=== PATIENT | female | born 1945 | race Caucasian/White ===

== ENCOUNTER → 2017-02-25 | Outpatient (CLI) | payer OTHER ==
[~2017-02-25] MED LIST: ACCL20 PO; ASPI81TA28 PO; CETI10TA84 PO; CRDCD/180 PO; CRS/10 PO; MOME1AER5 INH; VNTHFA/IN INH
[2017-02-25 10:55] LABS: BASO % 0.7 %; BASO ABS # 0.05 K/uL (0-0.2); COMPLETE YES; EOS % 4.1 %; HEMATOCRIT 42.4 % (37-47); IG% 0.3 %; LYMPH % 37.3 %; LYMPH ABS # 2.79 K/uL (1.2-3.4); MEAN CELL VOLUME 87.4 fL (80-100); MEAN CORPUSCULAR HEMOGLOBIN 28.2 pg (25-34); MEAN CORPUSCULAR HGB CONC 32.3 g/dl (32-36); MEAN PLATELET VOLUME 9.4 fL (7.4-10.4); MONO % 9.5 %; NEUT % 48.1 %; PLATELET COUNT 285 K/uL (130-400); RED BLOOD COUNT 4.85 M/uL (4.2-5.4); WHITE BLOOD COUNT 7.47 K/uL (4.8-10.8)
[2017-02-25 11:13] LABS: ALT/SGPT 32 U/L (12-78); BLOOD UREA NITROGEN 13 mg/dl (7-18); BUN/CREATININE RATIO 16.3 (10-20); CALCIUM 9.5 mg/dl (8.5-10.1); CARBON DIOXIDE 26 mmol/L (21-32); CHLORIDE 108 mmol/L (98-107); CHOLESTEROL 171 mg/dl (0-200); CREATININE 0.82 mg/dl (0.60-1.20); GLUCOSE 90 mg/dl (70-99); POTASSIUM 4.1 mmol/L (3.5-5.1); SODIUM 142 mmol/L (136-145)
[2017-02-25 11:24] LABS: ALB/GLOB RATIO 1.1 (0.9-2); ALKALINE PHOSPHATASE 73 U/L (45-117); AST/SGOT 17 U/L (15-37); CHOLESTEROL/HDL RATIO 2.8; HDL CHOLESTEROL 62 mg/dl; LDL CHOLESTEROL CALCULATED 84 mg/dl; TRIGLYCERIDES 123 mg/dl (0-150); VERY LOW DENSITY LIPOPROT CALC 25 mg/dl
[2017-02-25 12:11] LABS: ESTIMATED AVERAGE GLUCOSE 126 mg/dl; HA1C FLAG Normal (Normal)
== END | disposition home or self-care (01) ==
LOC: C.LABBC 07:50
PROVIDERS: ATTEND Internal Medicine Pulmonary Disease
DX: J30.9 Allergic rhinitis, unspecified (principal); J45.909 Unspecified asthma, uncomplicated; M51.36 Other intervertebral disc degeneration, lumbar region; E11.9 Type 2 diabetes mellitus without complications

== ENCOUNTER → 2017-10-07 | Outpatient (CLI) | payer OTHER ==
[2017-10-07 14:04] LABS: HEMOGLOBIN A1C 5.8 % (4.5-5.6)
[2017-10-07 14:17] LABS: ALBUMIN 3.9 gm/dl (3.4-5.0); ALT/SGPT 29 U/L (12-78); AST/SGOT 17 U/L (15-37); BLOOD UREA NITROGEN 14 mg/dl (7-18); CALCIUM 9.4 mg/dl (8.5-10.1); CARBON DIOXIDE 24 mmol/L (21-32); CREATININE 0.79 mg/dl (0.60-1.20); GLUCOSE 94 mg/dl (70-99); POTASSIUM 4.2 mmol/L (3.5-5.1); SODIUM 138 mmol/L (136-145)
[2017-10-07 14:20] LABS: ALKALINE PHOSPHATASE 78 U/L (45-117); CHOLESTEROL 165 mg/dl (0-200); LDL CHOLESTEROL CALCULATED 80 mg/dl; TOTAL PROTEIN 7.7 gm/dl (6.4-8.2)
== END | disposition home or self-care (01) ==
LOC: C.LABBC 10:29
PROVIDERS: ATTEND Internal Medicine Pulmonary Disease
DX: J45.909 Unspecified asthma, uncomplicated (principal); E78.5 Hyperlipidemia, unspecified; E11.9 Type 2 diabetes mellitus without complications

== ENCOUNTER → 2018-04-04 | Outpatient (CLI) | payer OTHER ==
[~2018-04-04] MED LIST changes: -ACCL20 PO; +ZAFI1TAB11 PO
[2018-04-04 13:27] LABS: HEMOGLOBIN A1C 6.4 % (4.5-5.6)
== END | disposition home or self-care (01) ==
LOC: C.LABBC 09:55
PROVIDERS: ATTEND Internal Medicine Pulmonary Disease
DX: J30.9 Allergic rhinitis, unspecified (principal); J45.909 Unspecified asthma, uncomplicated; E78.5 Hyperlipidemia, unspecified; E11.9 Type 2 diabetes mellitus without complications; Z95.2 Presence of prosthetic heart valve

== ENCOUNTER 2022-10-18 05:23 | Observation (INO) ==
--- NOTE | 2022-09-08 13:34 | PAT Medication Instructions ---
Medication Instructions Date of Service September 08, 2022 Home Medications Medication Instructions Recorded albuterol sulfate 2.5 mg/3 mL 2.5 mg (3 mL) inhalation Q4H PRN 11/26/21 (0.083 %) solution for nebulization shortness of breath or wheezing #90 mL rosuvastatin 10 mg tablet 10 mg PO HS #90 tabs 11/26/21 albuterol sulfate 90 mcg/actuation 2 puff inhalation Q4H PRN Wheezing 05/27/22 aerosol inhaler (Proventil HFA) #18 grams aspirin 81 mg tablet,delayed release (Chandrakant Low Dose Aspirin) 81 mg PO PM bromelains 500 mg tablet 500 mg PO DAILY cetirizine 10 mg tablet (Zyrtec) 10 mg PO PM cholecalciferol (vitamin D3) 25 mcg (1,000 unit) capsule (Vitamin D3) 1,000 unit PO DAILY diltiazem HCl 240 mg capsule,extended release 24 hr (Cartia XT) 240 mg PO PM glucosamine sulfate 500 mg tablet (Glucosamine) 500 mg PO DAILY multivitamin 1 tab PO QAM diphenhydramine HCl 25 mg tablet 25 mg PO DAILY PRN albuterol sulfate 2.5 mg/3 mL (0.083 %) solution for nebulization 2.5 mg (3 mL) inhalation Q4H PRN rosuvastatin 10 mg tablet 10 mg PO HS albuterol sulfate 90 mcg/actuation aerosol inhaler (Proventil HFA) 2 puff inhalation Q4H PRN olmesartan 5 mg tablet 20 mg PO HS acetaminophen 500 mg capsule 500 mg PO Q6H PRN lutein 20 mg-zeaxanthin 1,000 mcg capsule 1 cap PO DAILY meloxicam 7.5 mg tablet 7.5 mg PO .COMPLEX PRN mometasone 220 mcg/actuation(60 doses) breath activated powder inhaler (Asmanex Twisthaler) 1 inh inhalation PM vitamin B complex 1 tab PO DAILY zafirlukast 20 mg tablet 20 mg PO QAM ASK your surgeon for instructions meloxicam 7.5 mg tablet 7.5 mg PO .COMPLEX PRN STOP taking 2 weeks before surgery (or as soon as possible if surgery is within 2 weeks) bromelains 500 mg tablet 500 mg PO DAILY glucosamine sulfate 500 mg tablet (Glucosamine) 500 mg PO DAILY lutein 20 mg-zeaxanthin 1,000 mcg capsule 1 cap PO DAILY vitamin B complex 1 tab PO DAILY DO NOT take the morning of surgery cholecalciferol (vitamin D3) 25 mcg (1,000 unit) capsule (Vitamin D3) 1,000 unit PO DAILY multivitamin 1 tab PO QAM diphenhydramine HCl 25 mg tablet 25 mg PO DAILY PRN Take morning of surgery With a small sip of water, OTHERWISE NOTHING TO EAT OR DRINK AFTER MIDNIGHT: albuterol sulfate 2.5 mg/3 mL (0.083 %) solution for nebulization 2.5 mg (3 mL) inhalation Q4H PRN(if needed) albuterol sulfate 90 mcg/actuation aerosol inhaler (Proventil HFA) 2 puff inhalation Q4H PRN(use if needed; please bring with you to hospital day of surgery if possible) acetaminophen 500 mg capsule 500 mg PO Q6H PRN(if needed) zafirlukast 20 mg tablet 20 mg PO QAM Take evening before surgery aspirin 81 mg tablet,delayed release (Chandrakant Low Dose Aspirin) 81 mg PO PM (unless directed otherwise by surgeon) cetirizine 10 mg tablet (Zyrtec) 10 mg PO PM diltiazem HCl 240 mg capsule,extended release 24 hr (Cartia XT) 240 mg PO PM albuterol sulfate 2.5 mg/3 mL (0.083 %) solution for nebulization 2.5 mg (3 mL) inhalation Q4H PRN(if needed) rosuvastatin 10 mg tablet 10 mg PO HS albuterol sulfate 90 mcg/actuation aerosol inhaler (Proventil HFA) 2 puff inhala tion Q4H PRN(if needed) olmesartan 5 mg tablet 20 mg PO HS acetaminophen 500 mg capsule 500 mg PO Q6H PRN(if needed) mometasone 220 mcg/actuation(60 doses) breath activated powder inhaler (Asmanex Twisthaler) 1 inh inhalation PM Other Notes If you have any questions please call us at [phone] or [phone] or [phone] or [phone]
--- NOTE | 2022-09-16 14:28 | Anesthesiology Consultation ---
Date of Service September 16, 2022 Assessment & Plan (1) Encounter for pre-operative examination: Chart Review Chart Review: Acceptable Risk for Surgery and Patient seen in Pre Admission Testing - Not a Same Day Joint candidate due to comorbidities and age Per PAT appt on 09/16/22, patient denies any recent travel or large group activities. Pt is vaccinated for Covid. Will leave to surgeon's discretion if preop Covid testing needed. Educated on importance of using Covid precautions one week prior to surgery Pt seen by cardio 08/03/22= patient seen for follow-up in regards to bioprosthetic aortic valve replacement and aortic root enlargement using noncoronary cusp technique, hypertension and preserved left ventricular systolic function by echo March 2022. Patient to undergo left hip replacement in September [address] Wood. From my standpoint, she can proceed with surgery. Risk of cardiac complications is in the range of 3-4% at most. LV function is normal and her bioprosthetic valve is functioning normally. Prior to 2015 aortic valve replacementshe did not have any coronary artery disease per preop cardiac catheterization. Would recommend stopping her IV fluids as soon as possible as she is taking p.o. postoperatively in order to avoid volume overload and diastolic heart failure. BP remains elevatedlikely exacerbated by degree of painolmesartan increased from 15 to 20 mg at night. Otherwise from my standpoint she is stable. Follow-up in 6 months. Teaching & Discussion Pre-Anesthesia Teaching/Discussion Notes: Instructed NPO after midnight before surgery,except medications with 15 cc of water. Medication instructions provided according to the PAT guidelines. History Surgery Operation Date: 10/18/22 09:20 Proposed Procedures p Left Anterior Total Hip Arthroplasty - Luciano Wood DO Height/Weight Height: 5 ft 3 in Weight: 63.3 kg Allergies Allergy/AdvReac Type Severity Reaction Status Date / Time tree nut Allergy Intermediate Hives Verified 08/30/22 14:39 doxycycline Allergy Dizziness Verified 08/30/22 14:38 monohyrate Allergy Unknown Unknown Uncoded 08/30/22 14:38 Medications Home Medications Medication Instructions Recorded Confirmed Last Taken aspirin 81 mg tablet,delayed 81 mg PO PM 05/04/18 08/30/22 05/04/18 release (Chandrakant Low Dose Aspirin) bromelains 500 mg tablet 500 mg PO DAILY 05/04/18 08/30/22 05/04/18 cetirizine 10 mg tablet (Zyrtec) 10 mg PO PM 05/04/18 08/30/22 05/04/18 cholecalciferol (vitamin D3) 25 1,000 unit PO DAILY 05/04/18 08/30/22 05/04/18 mcg (1,000 unit) capsule (Vitamin D3) diltiazem HCl 240 mg 240 mg PO PM 05/04/18 08/30/22 05/03/18 capsule,extended release 24 hr (Cartia XT) glucosamine sulfate 500 mg tablet 500 mg PO DAILY 05/04/18 08/30/22 05/04/18 (Glucosamine) multivitamin 1 tab PO QAM 05/04/18 08/30/22 05/04/18 diphenhydramine HCl 25 mg tablet 25 mg PO DAILY PRN Allergy 05/08/19 08/30/22 Unknown Symptoms #180 tabs albuterol sulfate 2.5 mg/3 mL 2.5 mg (3 mL) inhalation Q4H PRN 11/26/21 08/30/22 Unknown (0.083 %) solution for nebulization shortness of breath or wheezing #90 mL rosuvastatin 10 mg tablet 10 mg PO HS #90 tabs 11/26/21 08/30/22 Unknown albuterol sulfate 90 mcg/actuation 2 puff inhalation Q4H PRN Wheezing 05/27/22 08/30/22 Unknown aerosol inhaler (Proventil HFA) #18 grams olmesartan 5 mg tablet 20 mg PO HS 05/27/22 08/30/22 Unknown acetaminophen 500 mg capsule 500 mg PO Q6H PRN Pain 08/30/22 08/30/22 Unknown lutein 20 mg-zeaxanthin 1,000 mcg 1 cap PO DAILY 08/30/22 08/30/22 Unknown capsule meloxicam 7.5 mg tablet 7.5 mg PO .COMPLEX PRN Pain 08/30/22 08/30/22 Unknown mometasone 220 mcg/actuation(60 1 inh inhalation PM 08/30/22 08/30/22 Unknown doses) breath activated powder inhaler (Asmanex Twisthaler) vitamin B complex 1 tab PO DAILY 08/30/22 08/30/22 Unknown zafirlukast 20 mg tablet 20 mg PO QAM 08/30/22 08/30/22 Unknown Past Medical History Medical History Allergic rhinitis Aortic valve disease S/p AVR (2015)- bioprosthetic - due to severe Follows with Dr. Messer Asthma Breathing stable Hyperlipidemia Hypertension Lumbar degenerative disc disease SNHL (sensorineural hearing loss) b/l aids Exercise / Class Metabolic Activity II 4-5 Yardwork/Stairs/Walk up hill (one flight of stairs - no chest pain or SOB (uses cane for support)) Past Family History Family History Other No pertinent family history Past Surgical History Surgical History H/O aortic valve replacement [address] [place] Trifecta pericardial [place] [facility] [place] H/O colonoscopy (~2008) History of cardiac cath 2016 > no stents History of endometrial ablation History of hysterectomy History of tooth extraction S/P correction of deviated nasal septum Past Anesthesia History No Hx of Anesthesia Complications and No Family Hx of Anesthesia Complications History of PONV No Hx of Motion Sickness and History of PONV (one episode with AVR ) Social History Smoking Status: Never smoker Do You Dip or Chew Tobacco: No Hx Alcohol Use: No Hx Substance Use: No substance use type: does not use Review of Systems Chronic sinus issues- due allergies - stable - no acute issues Hx of blood transfusions- s/p surgery (2015) Occ snoring - no hx of sleep study (usually snoring due to congestion from allergies) Patient denies chest pain, shortness of breath, dyspnea on exertion, reflux, wheezing, palpitations. No hx of seizures, stroke, AL. No hx of blood clots Physical Exam Vital Signs VITALS BP 150/69 P 79 TEMP 97.9 SP02 96% RESP 16 Constitutional no acute distress ENMT Mouth: no TMJ clicking Thyromental Distance: < 3.5 Finger Breadths (3.0) Mallampati Class: II Neck + limited neck extension Respiratory normal respiratory effort; no respiratory distress Auscultation: lungs clear to auscultation bilaterally; no wheezes Cardiovascular Rate/Rhythm: regular rate and regular rhythm Heart Sounds: + murmur (II/ murmur ) Vessels: no carotid bruit Musculoskeletal Spine: no pain with cervical ROM Extremities: extremities normal to inspection Psychiatric Orientation: alert Lab Results Anesthesia Preop Results Results Anesthesia Widget: WBC 9.61 K/ul (4.8-10.8) 09/16/22 Hgb 11.9 g/dl (12.0-16.0) L 09/16/22 Hct 35.7 % (37.0-47.0) L 09/16/22 Plt 329 K/uL (130-400) 09/16/22 Na 133 mmol/L (136-145) L 09/16/22 K 4.6 mmol/L (3.5-5.1) 09/16/22 Cl 99 mmol/L (98-107) 09/16/22 CO2 26 mmol/L (21-32) 09/16/22 BUN 10 mg/dl (6-23) 09/16/22 Creat 0.58 mg/dl (0.6-1.2) L 09/16/22 Glucose Level 90 mg/dl (70-99(Fasting)) 09/16/22 PT 10.6 Seconds (9.0-12.0) 09/16/22 PTT 28.4 Seconds (21.0-31.0) 09/16/22 INR 1.0 (0.9-1.1) 09/16/22 Blood Type A Positive 09/16/22 Antibody Screen NEGATIVE 09/16/22 Testing Electrocardiogram Date: 09/16/22 Findings: + NSR @ (77bpm ) Possible left atrial enlargement When compared to EKG from Apr- PVCs are no longer present per cardio Chest X-Ray Date: 09/16/22 Findings: + NAD Echocardiogram Date: 04/07/22 EF: 70% LV Function: normal RWMA: + none Other Findings: + diastolic dysfunction (Grade 1) Asymmetrical basal septal hypertrophy of the elderly Well-seated 19 mm [place] trifecta pericardial aortic valve replacement with appropriate hemodynamics. Mild MR. Moderate TR. Compared to previous study from 08/28/2020, there is no significant change. COVID-19 Risk Screen Screening Information COVID-19 Screen Date: 09/16/22 Exposure 21 Days Family/Household +COVID Last 21 Days: No Exposure 10 Days Any COVID Exposure Last 10 Days: No Symptoms Last 10 Days Experienced COVID Sx Last 10 Days: No + COVID 0-90 Days COVID + in Last 0-90 Days: No Risk Plan COVID Risk Plan: No Risk Identified Patient Education COVID Preop Screening Education Complete: Yes
[2022-10-18] MEDS ORDERED: TRANEXAMIC ACID 1,000 MG **IV Pre-op IV SCH (06:00)
[2022-10-18] MEDS ORDERED: Ketorolac (*for OR use only*) 30 MG, dexAMETHasone 4 MG, KETAMINE HCL (**OR use only) 1... INFIL SCH (06:00)
[2022-10-18] MEDS ORDERED: dexAMETHasone 4 MG TAB PO SCH (06:00)
[2022-10-18] MEDS ORDERED: LR 60ML/HR IV SCH (06:00)
[2022-10-18] MEDS ORDERED: TRANEXAMIC ACID 1,000 MG **IV Intra-op IV SCH (06:00)
[2022-10-18] MEDS ORDERED: FAMOTIDINE 20 MG TAB PO SCH (06:00)
[2022-10-18] MEDS ORDERED: GABAPENTIN 300 MG CAP PO SCH (06:00)
[2022-10-18] MEDS ORDERED: ceFAZolin 2000MG 2,000 MG/15 ML SYR IV SCH (06:00)
[2022-10-18] MEDS ORDERED: ACETAMINOPHEN 500 MG TAB PO SCH (06:00)
[2022-10-18] MEDS ORDERED: BUPIVACAINE 0.5 % 5 MG/1 ML PF 10ML VIAL ONE (06:25)
[2022-10-18] MEDS ORDERED: ORTHO JOINT ANESTHETIC ONE (06:31)
--- NOTE | 2022-10-18 06:40 | History & Physical Bridge Note ---
Date of Service October 18, 2022 History & Physical Bridge Note I have examined the patient, reviewed the History & Physical and in the interval since the performance of the History & Physical I have noted the following changes of clinical significance: no changes noted
[2022-10-18] MEDS ORDERED: ATROPINE SULFATE 0.1 MG/ML 10ML SYR IV PRN (07:05)
[2022-10-18] MEDS ORDERED: ePHEDrine sulfate 50 MG/ML AMP IV PRN (07:05)
[2022-10-18] MEDS ORDERED: fentaNYL citrate 100 MCG/2 ML VIAL IV PRN (07:05)
[2022-10-18] MEDS ORDERED: HYDROmorphone INJ 2 MG/ML SYR/VIAL IV PRN (07:05)
[2022-10-18] MEDS ORDERED: MIDAZOLAM HCL 1 MG/ML 2ML VIAL ONE (07:15)
[2022-10-18] MEDS ORDERED: PROPOFOL IV EMULSION 10 MG/ML 20 ML VIAL IV ONE (07:15)
--- NOTE | 2022-10-18 08:30 | Operative Report ---
PG Post Operative Report Pre & Post Diagnosis Operation Date: 10/18/22 07:00 Pre-Op Diagnosis: Degenerative Joint Disease Left Hip Post-Op Diagnosis: Degenerative Joint Disease Left Hip I identified the patient and participated in the time-out.: Yes Procedure Operation Date: 10/18/22 07:00 Actual Procedures p Left Anterior Total Hip Arthroplasty, Uncemented(Left) - Luciano Wood DO Surgeon Luciano Wood DO Product Marketing Manager Luciano Ye PA-C Estimated Blood Loss 200 Findings Consistent with Post-Op Diagnosis Specimens Left femoral head Description of Procedure Implants used I used a ZimmerBiomet total hip arthroplasty system with a size 0 high offset Avenir Complete stem, a 50 mm G7 cup with a 25mm screw, an E1 polyethylene liner, a 36 mm ceramic head with a -3.5 neck. Melissa arrived at the hospital for the above procedure. She was seen in the preoperative holding area and the operative extremity was identified and signed. She was given a spinal anesthetic, a preoperative antibiotic, and TXA. She was then taken back to the operating room and laid on the table in the supine position. She was given basic sedation. The operative leg was secured to a Puristst leg positioner. The hip was then prepped and draped in sterile fashion. A timeout was done and the patient and the operative extremity was pr operly identified. An anterior approach was used. Dissection was taken down through the fascia and the tensor muscle belly was retracted laterally and the rectus was retracted medially. The circumflex vessels were identified and ligated. The capsule was then incised and tagged for later repair. The femoral neck was then cut and the femoral head was removed. The acetabulum was exposed. Time was spent doing a complete circumferential labral release. Sequential reaming of the acetabulum up to a size 49 reamer was done. Final reamings were done under fluoroscopy to ensure appropriate version. A Biomet 50 mm G7 cup was then impacted into place. A single 25 mm screw was placed. The E1 polyethylene liner was then snapped into place. Surrounding soft tissues were then injected with 100 cc of an orthopedic pain control cocktail. The proximal femur was then exposed. Sequential broaching up to a size 0 broach was done. Off that broach a size 36 head with a -3.5 neck was trialed. The hip was reduced and fluoroscopic images showed anatomic alignment of the implants in acceptable length. The broach was removed. The final size 0 high offset Avenir Complete stem was then impacted into place. A ceramic 36 mm head with a -3.5 neck was then impacted onto the stem and the hip was reduced. Final fluoroscopic images showed anatomic alignment of the hip. The capsule was then closed with #1 Vicryl suture. A dilute betadyne lavage was then done for 3 minutes. The joint was then irrigated with normal saline solution. The fascia was closed with #1 PDS suture. Skin was closed with 2-0 Vicryl, dagmar, and a Silverlon dressing. She was then transferred to a hospital bed and taken to the post anesthesia care unit in stable condition. She tolerated the procedure well. Luciano Ye PA-C, was present for the entire procedure. He was critical for patient positioning, prepping, draping, retraction exposure, wound closure and application of sterile dressing. I attest to the content of the Intraoperative Record and any orders documented therein. Any exceptions are noted below.
--- NOTE | 2022-10-18 09:04 | Fluoroscopy Report ---
FL hip LT 1V CLINICAL HISTORY: LT ANTERIOR HIP ARTHROPLASTY COMPARISON STUDY: Left hip radiographs September 29, 2022. FLUOROSCOPY TIME: 29 seconds. EXPOSURE DOSE: 2.5038 mGy FLUOROSCOPIC IMAGES: 1 FINDINGS: Fluoroscopy was provided during total left hip arthroplasty. There is an acetabular screw. Hardware is intact. No fracture is identified. IMPRESSION: Fluoroscopy provided during total left hip arthroplasty. ACT 112: Negative or not required by law. Electronically signed by: Ankur Santana M.D. 10/18/2022 9:02 AM
--- NOTE | 2022-10-18 09:34 | Anesthesiology Progress Note ---
Date of Service October 18, 2022 Anesthesia Post Procedure Vital Signs Vital Signs: Temp Pulse Pulse Resp BP BP Pulse Ox 10/18/22 09:30 61 13 123/54 L 98 10/18/22 09:20 36.2 C L 67 16 121/52 L 99 10/18/22 09:10 65 14 120/65 100 10/18/22 09:00 66 24 109/54 L 98 10/18/22 08:50 36.2 C L 74 16 104/53 L 98 10/18/22 05:56 10/18/22 05:56 36.9 C 94 H 20 187/85 H 96 O2 Del Method O2 Flow Rate 10/18/22 09:30 Room Air 10/18/22 09:20 Room Air 10/18/22 09:10 Oxymask 4 10/18/22 09:00 Oxymask 4 10/18/22 08:50 Oxymask 7 10/18/22 05:56 Room Air 10/18/22 05:56 Room Air Transfer of Care Handoff Completed per policy Notes Mental Status: alert / awake / arousable and participated in evaluation Nausea / Vomiting: adequately controlled Pain: adequately controlled Airway Patency, RR, SpO2: stable & adequate BP & HR: stable & adequate Hydration State: stable & adequate Neuraxial Anesthesia: was administered and sensory block is resolving Anesthetic Complications: no major complications apparent and Pt Satisfied with anesthetic care
[2022-10-18] MEDS ORDERED: HYDROmorphone INJ 0.5 MG/0.5 ML SYR IV PRN (09:48)
[2022-10-18] MEDS ORDERED: MAGNESIUM HYDROXIDE SUSP 30 ML UDC PO PRN (09:48)
[2022-10-18] MEDS ORDERED: bisacodyL 10 MG SUPP PR PRN (09:48)
[2022-10-18] MEDS ORDERED: ALBUTEROL 0.083% NEBU SOLN 3 ML VIAL INH PRN (09:48)
[2022-10-18] MEDS ORDERED: NALOXONE HCL 0.4 MG/1 ML VIAL/CARP IV PRN (09:48)
[2022-10-18] MEDS ORDERED: oxyCODONE HCL IR 5 MG TAB (IMMEDIATE RELEASE) PO PRN (09:48)
[2022-10-18] MEDS ORDERED: METOCLOPRAMIDE HCL INJ 5 MG/ML 2 ML VIAL IV PRN (09:48)
[2022-10-18] MEDS ORDERED: ALBUTEROL HFA 8 GM INHALER INH PRN (09:48)
[2022-10-18] MEDS ORDERED: ONDANSETRON INJ 2 MG/ML 2 ML VIAL IV PRN (09:48)
[2022-10-18] MEDS: SODIUM CHLORIDE 0.9% 1000ML 1,000 ML IV SCH ×2 (10:12→22:31)
[2022-10-18] MEDS: DOCUSATE SODIUM 100 MG CAP PO SCH ×2 (10:50→21:03)
[2022-10-18] MEDS: ASPIRIN 81 MG ECTAB PO SCH ×2 (10:50→21:02)
[2022-10-18] MEDS: MULTIVITAMIN TAB PO SCH (10:50)
[2022-10-18] MEDS: KETOROLAC TROMETHAMINE 15 MG/ML VIAL IV SCH ×3 (10:50→21:51)
--- NOTE | 2022-10-18 11:26 | XRay Report ---
XR hip 1V LT w pelvis CLINICAL HISTORY: Postoperative evaluation. COMPARISON: Left hip radiographs April 29, 2023. FINDINGS: Alignment of the total left hip arthroplasty is anatomic. There is no periprosthetic fract ure or unexpected radiopaque foreign body. There are skin dagmar. Acetabular screw is noted. Right h ip osteoarthritis is incidentally noted. IMPRESSION: Expected findings following total left hip arthroplasty. ACT 112: Negative or not required by law. Electronically signed by: Ankur Santana M.D. 10/18/2022 11:25 AM
[2022-10-18] MEDS: ACETAMINOPHEN 500 MG TAB PO SCH ×2 (14:40→21:02)
[2022-10-18] MEDS: ceFAZolin 2000MG 2,000 MG/15 ML SYR IV SCH ×2 (15:22→22:45)
[2022-10-18] MEDS ORDERED: FLUTICASONE FUROATE 100MCG 14 PUFFS/INHALER INH SCH (21:00)
[2022-10-18] MEDS ORDERED: dilTIAZem HCL 240 MG CAPCR PO SCH (21:00)
[2022-10-18] MEDS ORDERED: CETIRIZINE HCL 10 MG TABLET PO SCH (21:00)
[2022-10-18] MEDS ORDERED: LOSARTAN POTASSIUM 25 MG TAB PO SCH (21:00)
[2022-10-18] MEDS ORDERED: SENNA 8.6 MG TAB PO SCH (21:00)
[2022-10-18] MEDS ORDERED: ROSUVASTATIN CALCIUM 10 MG TAB PO SCH (21:00)
[2022-10-18] MEDS: ZAFIRLUKAST 20 MG PO SCH (21:04)
[2022-10-19] MEDS: KETOROLAC TROMETHAMINE 15 MG/ML VIAL IV SCH (05:22)
[2022-10-19] MEDS: ACETAMINOPHEN 500 MG TAB PO SCH (05:22)
[2022-10-19] MEDS: SODIUM CHLORIDE 0.9% 1000ML 1,000 ML IV SCH (06:04)
--- NOTE | 2022-10-19 06:50 | Orthopedic Progress Note ---
Date of Service October 19, 2022 Assessment & Plan (1) Status post left hip replacement: Overall she is doing very well. She is not having much pain in the left hip. She is on aspirin for DVT prophylaxis. She will be seen by physical therapy today for ambulation and range of motion exercises. She can be discharged home later today. She will follow-up with orthopedics in 2 weeks. Keisha Torres was seen and examined at bedside this morning. Overall she is doing fairly well. She is not having much pain in the left hip. She has been up and ambulating. She has no complaints.. Review of Systems All systems reviewed & are unremarkable except as noted in HPI & below. Physical Exam On physical examination of the left hip, the dressing is clean and dry. Her leg is out full extension. She has active dorsiflexion plantarflexion of her left ankle.. Results & Data Results & Data Laboratory Results . Diagnostic Findings Postoperative x-rays of the left hip show the prosthesis to be in anatomic alignment without any evidence of fracture, dislocation, or loosening. PG Care Time/CCT Total # of Minutes Spent Total Time Spent with Patient: Total time spent is greater than 50% in coordination of care (as documented) at patient's floor/unit and/or counseling patient: Coding Level of Care Code 45274 Post Operative Follow-Up Diagnoses Status post left hip replacement Z96.642
--- NOTE | 2022-10-19 06:51 | Discharge Summary ---
Date of Service October 19, 2022 Principal Diagnosis Same as "Discharge Diagnosis" noted below under Discharge Instructions. Discharge Exam On physical examination of the left hip, the dressing is clean and dry. Her leg is out full extension. She has active dorsiflexion plantarflexion of her left ankle.. Discharge Data Procedures Performed Operation Date: 10/18/22 07:00 Actual Procedures p Left Anterior Total Hip Arthroplasty, Uncemented(Left) - Luciano Wood DO Ordered Studies 10/18/22 07:00 FL hip LT 1V Routine Hospital Course (1) Status post left hip replacement: On October 18, 2022 Melissa arrived at [facility] and underwent a left hip replacement without complication. She had a spinal anesthetic. Postoperatively she was started on aspirin for DVT prophylaxis and transferred to the general orthopedic floors. Her hospital course was uneventful. On postop day #1, her vital signs were stable and her pain was well controlled. She was able to participate well with physical therapy doing ambulation and range of motion exercises. She was then discharged home. She will follow-up with orthopedics in 2 weeks. PG Care Time/CCT Total # of Minutes Spent Total Time Spent with Patient: Total time spent is greater than 50% in coordination of care (as documented) at patient's floor/unit and/or counseling patient: Discharge Plan Discharge Items Patient Disposition: Home - Home Health Services Reason For Visit: DJD Left Hip Discharge Diagnosis: Left hip replacement Activity: Per Instructions section Non-emergency contact: Surgeon Call non-emergency contact if: your wound has increased redness and your wound has increased drainage Follow-up/Referrals: Darnell Madsen MD [Primary Care Provider] - Diet: Regular Addtl Attending Provider Instructions: Activity and Therapy Recommendations: * If you are using [facility] then therapy will be provided at your home until they feel you have accomplished all of your goals. * If you are using [facility] then Physical Therapy will be provided until they feel you are ready to start Outpatient Physical Therapy. * If you are not using home therapy then Outpatient Physical Therapy should start about 3-5 days from your day of surgery. Therapy will last about 6-10 weeks * You were shown a series of exercises in the hospital. Do these exercises three times each day including the exercises you were shown in physical therapy. * Get up and walk several times each day.~ For the first four weeks, try not to stand or walk for more than one hour at a time. If you do stand or walk for more than one hour, you will not hurt anything, but your leg will likely swell.~~ * As you feel comfortable, you may change from the walker or crutches to a cane and~then to independent walking. Medications: * Narcotic You will likely be sent home from the hospital with a prescription for the narcotic pain medication that worked best throughout your stay. * Aspirin Most patients will be required to take Aspirin 81mg twice a day for 6 weeks after surgery. This is obtained [id number] and a prescription is not necessary. * Other medications may be prescribed for specific circumstances. If you have any questions, please call the office at . * Resume previous home medications unless otherwise instructed TEDs/Elastic Stockings: The white elastic stockings help limit swelling and prevent blood clots from forming in your legs. The more you wear them, the more they work. Wear them for six weeks. Dressing Care: Leave the Silverlon dressing in place for 7 days. After 7 days you may remove the dressing. If the incision is not draining then you may leave the dagmar open to air. If there is a little bit of drainage or if the dagmar are getting stuck on your clothing then cover the incision with a dry dressing. The dagmar will be removed at your 2 week follow-up appointment. Showering: You may shower with the Silverlon dressing in place. Do not let the shower spray hit the dressing directly. Pat the Silverlon dressing dry. If the dressing becomes wet underneath, then simply remove the dressing. Keep the incision dry until you are 7 days out from the day of surgery. After 7 days you may remove the Silverlon dressing and shower with the dagmar exposed. Let soapy water run over the dagmar and pat them dry. Do not scrub or soak the incision. Things To Watch For: * Drainage from the incision site that occurs more than one week after your surgery. * Increased redness at the incision site. * Fever above 102 degrees Fahrenheit. * Unusual chest pain or shortness of breath. * Call [facility] at with any of the above problems Follow-Up Visit: Follow-up with Dr. Wood's PA (Luciano Ye) 2-3 weeks after your day of surgery. He will remove your dagmar and answer any questions. If you have any additional questions or concerns, Dr Wood is usually in the office at the same time and will be available An appointment was probably scheduled when you signed-up for surgery in the office. If you have any questions call Office Instructions: More detailed instructions as well as Frequently Asked Questions were provided in a folder by our office when you signed-up for surgery. Please review these instructions when you get home. If you have any further questions or concerns, please feel free to call the office at [phone] Pending Studies at Discharge: No Stand-Alone Forms: My [facility] Medications and DC Order Prescriptions: Continued diphenhydramine HCl 25 mg tablet 25 mg PO DAILY PRN (Reason: Allergy Symptoms) Qty: 180 olmesartan 5 mg tablet 20 mg PO HS rosuvastatin 10 mg tablet 10 mg PO HS Qty: 90 3RF albuterol sulfate 2.5 mg /3 mL (0.083 %) solution for nebulization 2.5 mg inhalation Q4H PRN (Reason: shortness of breath or wheezing) Qty: 90 11RF albuterol sulfate [Proventil HFA] 90 mcg/actuation HFA aerosol inhaler 2 puff INHALATION Q4H PRN (Reason: Wheezing) Qty: 18 11RF multivitamin Tablet 1 tab PO QAM bromelains 500 mg Tablet 500 mg PO DAILY cetirizine [Zyrtec] 10 mg Tablet 10 mg PO PM diltiazem HCl [Cartia XT] 240 mg Capsule,Extended Release 24hr 240 mg PO PM glucosamine sulfate [Glucosamine] 500 mg Tablet 500 mg PO DAILY cholecalciferol (vitamin D3) [Vitamin D3] 1,000 unit Capsule 1,000 unit PO DAILY vitamin B complex [B Complete] Tablet 1 tab PO DAILY acetaminophen [Tylenol Extra Strength] 500 mg Capsule 500 mg PO Q6H PRN (Reason: Pain) lutein-zeaxanthin 20 mg- 1,000 mcg Capsule 1 cap PO DAILY meloxicam 7.5 mg tablet 7.5 mg PO .COMPLEX PRN (Reason: Pain) Rx Instructions: 7.5 mg PO twice daily with food.; zafirlukast 20 mg tablet 20 mg PO QAM Asmanex Twisthaler 220 mcg/ actuation (60) aerosol powdr breath activated 1 inh INH PM Changed aspirin [Chandrakant Low Dose Aspirin] 81 mg Tablet,Delayed Release (Dr/Ec) 81 mg PO BID 42 Days Qty: 0 0RF Admission Data Admit Date/Time: 10/18/22 08:53 Attending Provider: Luciano Wood Admit Provider: Luciano Wood Primary Care Provider: Darnell Madsen
[2022-10-19] MEDS: MULTIVITAMIN TAB PO SCH (08:41)
[2022-10-19] MEDS: ASPIRIN 81 MG ECTAB PO SCH (08:41)
[2022-10-19] MEDS: DOCUSATE SODIUM 100 MG CAP PO SCH (08:41)
[2022-10-19] MEDS: ZAFIRLUKAST 20 MG PO SCH (08:42)
== END 2022-10-19 12:03 | disposition home health service (06) ==
LOC: ASU 05:23 → 3E 05:23

== ENCOUNTER 2023-04-29 08:32 | Observation (INO) ==
--- NOTE | 2023-03-29 15:56 | PAT Medication Instructions ---
Medication Instructions Date of Service March 29, 2023 Home Medications Medication Instructions Recorded rosuvastatin 10 mg tablet 10 mg PO HS #90 tabs 11/26/21 albuterol sulfate 90 mcg/actuation 2 puff inhalation Q4H PRN Wheezing 05/27/22 aerosol inhaler (Proventil HFA) #18 grams tramadol 50 mg tablet 50 mg PO Q6H PRN pain #30 tabs 10/22/22 albuterol sulfate 2.5 mg/3 mL 2.5 mg (3 mL) inhalation Q4H PRN 03/02/23 (0.083 %) solution for nebulization shortness of breath or wheezing #90 mL bromelains 500 mg tablet 500 mg PO QAM cetirizine 10 mg tablet (Zyrtec) 10 mg PO QPM cholecalciferol (vitamin D3) 25 mcg (1,000 unit) capsule (Vitamin D3) 1,000 unit PO QAM diltiazem HCl 240 mg capsule,extended release 24 hr (Cartia XT) 240 mg PO HS multivitamin 1 tab PO QAM diphenhydramine HCl 25 mg tablet 25 mg PO DAILY PRN Allergy Symptoms rosuvastatin 10 mg tablet 10 mg PO HS albuterol sulfate 90 mcg/actuation aerosol inhaler (Proventil HFA) 2 puff inhalation Q4H PRN Wheezing acetaminophen 500 mg capsule 500 mg PO Q6H PRN Pain lutein 20 mg-zeaxanthin 1,000 mcg capsule 1 cap PO QAM mometasone 220 mcg/actuation(60 doses) breath activated powder inhaler (Asmanex Twisthaler) 1 inh inhalation QPM vitamin B complex 1 tab PO QAM zafirlukast 20 mg tablet 20 mg PO QAM tramadol 50 mg tablet 50 mg PO Q6H PRN pain albuterol sulfate 2.5 mg/3 mL (0.083 %) solution for nebulization 2.5 mg (3 mL) inhalation Q4H PRN shortness of breath or wheezing Glucosamine 2,000 mg PO QAM aspirin 81 mg tablet,delayed release (Chandrakant Low Dose Aspirin) 81 mg PO QPM docusate sodium 100 mg capsule (Stool Softener) 100 mg PO DAILY lactobacillus combination no.4 3 billion cell capsule (Probiotic) 3,000 mmu cells PO DAILY olmesartan 20 mg tablet 20 mg PO HS STOP taking 2 weeks before surgery lutein 20 mg-zeaxanthin 1,000 mcg capsule 1 cap PO QAM bromelains 500 mg tablet 500 mg PO QAM Glucosamine 2,000 mg PO QAM DO NOT take the morning of surgery cholecalciferol (vitamin D3) 25 mcg (1,000 unit) capsule (Vitamin D3) 1,000 unit PO QAM multivitamin 1 tab PO QAM diphenhydramine HCl 25 mg tablet 25 mg PO DAILY PRN Allergy Symptoms vitamin B complex 1 tab PO QAM docusate sodium 100 mg capsule (Stool Softener) 100 mg PO DAILY lactobacillus combination no.4 3 billion cell capsule (Probiotic) 3,000 mmu cells PO DAILY Take morning of surgery With a small sip of water, OTHERWISE NOTHING TO EAT OR DRINK AFTER MIDNIGHT: albuterol sulfate 90 mcg/actuation aerosol inhaler (Proventil HFA) 2 puff inhalation Q4H PRN Wheezing (use if needed; please bring with you to hospital day of surgery if possible) acetaminophen 500 mg capsule 500 mg PO Q6H PRN Pain (if needed) zafirlukast 20 mg tablet 20 mg PO QAM tramadol 50 mg tablet 50 mg PO Q6H PRN pain (if needed) albuterol sulfate 2.5 mg/3 mL (0.083 %) solution for nebulization 2.5 mg (3 mL) inhalation Q4H PRN shortness of breath or wheezing (if needed) Take evening before surgery cetirizine 10 mg tablet (Zyrtec) 10 mg PO QPM diltiazem HCl 240 mg capsule,extended release 24 hr (Cartia XT) 240 mg PO HS diphenhydramine HCl 25 mg tablet 25 mg PO DAILY PRN Allergy Symptoms (if needed) rosuvastatin 10 mg tablet 10 mg PO HS albuterol sulfate 90 mcg/actuation aerosol inhaler (Proventil HFA) 2 puff inhalation Q4H PRN Wheezing (if needed) acetaminophen 500 mg capsule 500 mg PO Q6H PRN Pain (if needed) mometasone 220 mcg/actuation(60 doses) breath activated powder inhaler (Asmanex Twisthaler) 1 inh inhalation QPM tramadol 50 mg tablet 50 mg PO Q6H PRN pain (if needed) albuterol sulfate 2.5 mg/3 mL (0.083 %) solution for nebulization 2.5 mg (3 mL) inhalation Q4H PRN shortness of breath or wheezing (if needed) aspirin 81 mg tablet,delayed release (Chandrakant Low Dose Aspirin) 81 mg PO QPM (unless surgeon directed otherwise) olmesartan 20 mg tablet 20 mg PO HS Other Notes If you have any questions please call us at [phone] or [phone] or [phone] or [phone]
--- NOTE | 2023-04-06 14:30 | Anesthesiology Consultation ---
Date of Service April 06, 2023 Assessment & Plan (1) Encounter for pre-operative examination: Chart Review Chart Review: Acceptable Risk for Surgery (pending ECHO 04/14/23) and Patient seen in Pre Admission Testing - Awaiting ECHO at [facility] 04/14/23 at 1600 - Due to age - patient is NOT an ideal OPJ candidate Per PAT appt on 04/06/23, no recent Covid exposures, Covid related symptoms, or recent Covid positive tests. Will leave to surgeon's discretion if preop Covid testing needed Patietn seen by cardio 02/02/23= Seen for follow up. Patient with history of bioprosthetic aortic valve replacement and HTN. Preserved LV systolic function. Patient had left hip done in September. Plans to have next done in the fall. Patient is stable. Feeling well since having hip replaced. Can ascend a flight of stairs without any shortness of breath or chest discomfort. Her risk does not change as far as cardiovascular risk proceeding with next hip surgery in Apr, 3 to 4% risk of cardiac complication. She will have an echocardiogram done in March prior to surgery which is a year from previous. BP borderline today- mointors at home- usually 130s systolically. follow up in six months Left Anterior YUKO 10/18/22= done under [facility] at L3-4 with two attempts Teaching & Discussion Pre-Anesthesia Teaching/Discussion Notes: Instructed NPO after midnight before surgery,except medications with 15 cc of water. Medication instructions provided according to the PAT guidelines. History Surgery Operation Date: 04/29/23 07:00 Proposed Procedures p Right Anterior Total Hip Arthroplasty - Luciano Wood DO Height/Weight Height: 5 ft 3 in Weight: 60.3 kg Allergies Allergy/AdvReac Type Severity Reaction Status Date / Time tree nut Allergy Intermediate Hives Verified 03/29/23 13:59 doxycycline Allergy Dizziness Verified 03/29/23 13:59 monohyrate Allergy Unknown Unknown Uncoded 03/29/23 13:59 Medications Home Medications Medication Instructions Recorded Confirmed Last Taken bromelains 500 mg tablet 500 mg PO QAM 05/04/18 03/29/23 10/04/22 cetirizine 10 mg tablet (Zyrtec) 10 mg PO QPM 05/04/18 03/29/23 10/17/22 18:00 cholecalciferol (vitamin D3) 25 1,000 unit PO QAM 05/04/18 03/29/23 10/04/22 mcg (1,000 unit) capsule (Vitamin D3) diltiazem HCl 240 mg 240 mg PO HS 05/04/18 03/29/23 10/17/22 21:00 capsule,extended release 24 hr (Cartia XT) multivitamin 1 tab PO QAM 05/04/18 03/29/23 10/04/22 diphenhydramine HCl 25 mg tablet 25 mg PO DAILY PRN Allergy 05/08/19 03/29/23 Unknown Symptoms #180 tabs rosuvastatin 10 mg tablet 10 mg PO HS #90 tabs 11/26/21 03/29/23 10/17/22 18:00 albuterol sulfate 90 mcg/actuation 2 puff inhalation Q4H PRN Wheezing 05/27/22 03/29/23 10/18/22 03:30 aerosol inhaler (Proventil HFA) #18 grams acetaminophen 500 mg capsule 500 mg PO Q6H PRN Pain 08/30/22 03/29/23 10/17/22 21:30 lutein 20 mg-zeaxanthin 1,000 mcg 1 cap PO QAM 08/30/22 03/29/23 10/04/22 capsule mometasone 220 mcg/actuation(60 1 inh inhalation QPM 08/30/22 03/29/23 10/17/22 18:00 doses) breath activated powder inhaler (Asmanex Twisthaler) vitamin B complex 1 tab PO QAM 08/30/22 03/29/23 10/04/22 zafirlukast 20 mg tablet 20 mg PO QAM 08/30/22 03/29/23 10/18/22 03:30 tramadol 50 mg tablet 50 mg PO Q6H PRN pain #30 tabs 10/22/22 03/29/23 Unknown albuterol sulfate 2.5 mg/3 mL 2.5 mg (3 mL) inhalation Q4H PRN 03/02/23 03/29/23 Unknown (0.083 %) solution for nebulization shortness of breath or wheezing #90 mL Glucosamine 2,000 mg PO QAM 03/29/23 03/29/23 Unknown aspirin 81 mg tablet,delayed 81 mg PO QPM 03/29/23 03/29/23 Unknown release (Chandrakant Low Dose Aspirin) docusate sodium 100 mg capsule 100 mg PO DAILY 03/29/23 03/29/23 Unknown (Stool Softener) lactobacillus combination no.4 3 3,000 mmu cells PO DAILY 03/29/23 03/29/23 Unknown billion cell capsule (Probiotic) olmesartan 20 mg tablet 20 mg PO HS 03/29/23 03/29/23 Unknown Past Medical History Medical History Allergic rhinitis Aortic valve disease S/p AVR (2016)- bioprosthetic - due to severe Follows with Dr. Messer Asthma Breathing stable Hyperlipidemia Hypertension Lumbar degenerative disc disease SNHL (sensorineural hearing loss) b/l aids Exercise / Class Metabolic Activity II 4-5 Yardwork/Stairs/Walk up hill (one flight of stairs - no chest pain or SOB ) Past Family History Family History Other No pertinent family history Past Surgical History Surgical History H/O aortic valve replacement [address] [place] [facility] Trifecta pericardial valve- [facility] [place] 2016 H/O colonoscopy (~2008) History of cardiac cath 2016 > no stents > [facility] [place] History of endometrial ablation History of hysterectomy History of tooth extraction History of total left hip arthroplasty anterior S/P correction of deviated nasal septum Past Anesthesia History No Hx of Anesthesia Complications (mild lightheadedness post op ) and No Family Hx of Anesthesia Complications (with exception to sister- no specifics- no severe reactions ) History of PONV No Hx of PONV and No Hx of Motion Sickness Social History Smoking Status: Never smoker Do You Dip or Chew Tobacco: No Hx Alcohol Use: Yes Alcohol type: wine alcohol intake frequency: other Alcohol Intake Frequency Comment: only once in awhile she may have 1 sip-very rarely Hx Substance Use: No substance use type: does not use Review of Systems - Hx of blood transfusion 2016- s/p AVR Patient denies chest pain, shortness of breath, dyspnea on exertion, reflux, cough, wheezing, palpitations. No hx of seizures, stroke, [place], apnea/snoring. No hx of blood clots Physical Exam Vital Signs VITALS BP 140/67 P 72 TEMP 97.5 SP02 96% RESP 16 Constitutional no acute distress ENMT Mouth: no TMJ clicking Thyromental Distance: > or= 3.5 Finger Breadths (3.5) Mallampati Class: III Crowns to side teeth Neck + limited neck extension (mild ) Respiratory normal respiratory effort; no respiratory distress Auscultation: lungs clear to auscultation bilaterally; no wheezes Cardiovascular Rate/Rhythm: regular rate and regular rhythm Heart Sounds: + murmur (III/ murmur ) Vessels: no carotid bruit Musculoskeletal Spine: no pain with cervical ROM Extremities: extremities normal to inspection Psychiatric Orientation: alert Lab Results Anesthesia Preop Results Results Anesthesia Widget: WBC 6.97 K/ul (4.8-10.8) 04/06/23 Hgb 11.4 g/dl (12.0-16.0) L 04/06/23 Hct 34.2 % (37.0-47.0) L 04/06/23 Plt 299 K/uL (130-400) 04/06/23 Na 133 mmol/L (136-145) L 04/06/23 K 4.1 mmol/L (3.5-5.1) 04/06/23 Cl 101 mmol/L (98-107) 04/06/23 CO2 24 mmol/L (21-32) 04/06/23 BUN 11 mg/dl (6-23) 04/06/23 Creat 0.55 mg/dl (0.6-1.2) L 04/06/23 Glucose Level 84 mg/dl (70-99(Fasting)) 04/06/23 PT 10.7 Seconds (9.0-12.0) 04/06/23 PTT 27.6 Seconds (21.0-31.0) 04/06/23 INR 1.0 (0.9-1.1) 04/06/23 Blood Type A Positive 04/06/23 Antibody Screen NEGATIVE 04/06/23 Testing Laboratory Results Anemia stable since 08/2022 Hyponatremia chronic and stable Electrocardiogram Date: 09/16/22 Findings: + NSR @ (77bpm ) Possible left atrial enlargement When compared to EKG from Apr- PVCs are no longer present per cardio Chest X-Ray Date: 09/16/22 Findings: + NAD Echocardiogram Date: 04/07/22 EF: 70% LV Function: normal RWMA: + none Other Findings: + diastolic dysfunction (Grade 1) Asymmetrical basal septal hypertrophy of the elderly Well-seated 19 mm [place] trifecta pericardial aortic valve replacement with appropriate hemodynamics. Mild MR. Moderate TR. Compared to previous study from 08/28/2020, there is no significant change.
[~2023-04-29 08:32] MED LIST changes: +ACETAMINOPHEN 500 MG TAB PO SCH; -ASPI81TA28 PO; +BUPIVACAINE 0.5 % 5 MG/1 ML PF 10ML VIAL ONE; -CETI10TA84 PO; -CRDCD/180 PO; -CRS/10 PO; +FAMOTIDINE 20 MG TAB PO SCH; +GABAPENTIN 300 MG CAP PO SCH; +LR 500ML BOLUS, THEN 15ML/HR IV SCH; +LR 60ML/HR IV SCH; -MOME1AER5 INH; +ORTHO JOINT MIX INFIL SCH; +TRANEXAMIC ACID 1,000 MG **IV Intra-op IV SCH; +TRANEXAMIC ACID 1,000 MG **IV Pre-op IV SCH; -VNTHFA/IN INH; -ZAFI1TAB11 PO; +ceFAZolin 2000MG 2,000 MG/15 ML SYR IV SCH; +dexAMETHasone 4 MG TAB PO SCH
[2023-04-29] MEDS ORDERED: MIDAZOLAM HCL 1 MG/ML 2ML VIAL ONE (09:22)
[2023-04-29] MEDS ORDERED: fentaNYL citrate PF 100 MCG/2 ML VIAL ONE (09:22)
[2023-04-29] MEDS ORDERED: LIDOCAINE 2% 2 ML VIAL/AMP(20MG/ML) INFIL ONE (09:22)
[2023-04-29] MEDS ORDERED: PROPOFOL IV EMULSION 10 MG/ML 20 ML VIAL IV ONE ×2 (09:22→10:40)
--- NOTE | 2023-04-29 09:27 | History & Physical Bridge Note ---
Date of Service April 29, 2023 History & Physical Bridge Note I have examined the patient, reviewed the History & Physical and in the interval since the performance of the History & Physical I have noted the following changes of clinical significance: no changes noted
[2023-04-29] MEDS ORDERED: ORTHO JOINT ANESTHETIC ONE (09:54)
[2023-04-29] MEDS ORDERED: ONDANSETRON INJ 2 MG/ML 2 ML VIAL IV PRN ×2 (10:03→14:33)
[2023-04-29] MEDS ORDERED: fentaNYL citrate PF 100 MCG/2 ML VIAL IV PRN (10:03)
[2023-04-29] MEDS ORDERED: ATROPINE SULFATE 0.1 MG/ML 10ML SYR IV PRN (10:03)
[2023-04-29] MEDS ORDERED: ePHEDrine sulfate 50 MG/ML AMP IV PRN (10:03)
--- NOTE | 2023-04-29 11:37 | Operative Report ---
PG Post Operative Report Pre & Post Diagnosis Operation Date: 04/29/23 10:00 Pre-Op Diagnosis: Osteoarthritis of Right Hip Post-Op Diagnosis: Osteoarthritis of Right Hip I identified the patient and participated in the time-out.: Yes Procedure Operation Date: 04/29/23 10:00 Actual Procedures p Right Anterior Total Hip Arthroplasty(Right) - Luciano Wood DO Surgeon Luciano Wood DO Head Grinder Luciano Ye PA-C Estimated Blood Loss 150 Findings Consistent with Post-Op Diagnosis Specimens Right femoral head Description of Procedure Implants used I used a ZimmerBiomet total hip arthroplasty system with a size 0 high offset Avenir Complete stem, a 48 mm G7 cup with a 25mm screw, an E1 polyethylene liner, a 32 mm ceramic head with a -3.5 neck. Melissa arrived at the hospital for the above procedure. She was seen in the preoperative holding area and the operative extremity was identified and signed. She was given a spinal anesthetic, a preoperative antibiotic, and TXA. She was then taken back to the operating room and laid on the table in the supine position. She was given basic sedation. The operative leg was secured to a Puristst leg positioner. The hip was then prepped and draped in sterile fashion. A timeout was done and the patient and the operative extremity was properly identified. An anterior approach was used. Dissection was taken down through the fascia and the tensor muscle belly was retracted laterally and the rectus was retracted medially. The circumflex vessels were identified and ligated. The capsule was then incised and tagged for later repair. The femoral neck was then cut and the femoral head was removed. The acetabulum was exposed. Time was spent doing a complete circumferential labral release. Sequential reaming of the acetabulum up to a size 47 reamer was done. Final reamings were done under fluoroscopy to ensure appropriate version. A Biomet 48 mm G7 cup was then impacted into place. A single 25 mm screw was placed. The E1 polyethylene liner was then snapped into place. Surrounding soft tissues were then injected with 100 cc of an orthopedic pain control cocktail. The proximal femur was then exposed. Sequential broaching up to a size 0 broach was done. Off that broach a size 32 head with a -3.5 neck was trialed. The hip was reduced and fluoroscopic images showed anatomic alignment of the implants in acceptable length. The broach was removed. The final size 0 high offset Avenir Complete stem was then impacted into place. A ceramic 32 mm head with a -3.5 neck was then impacted onto the stem and the hip was reduced. Final fluoroscopic images showed anatomic alignment of the hip. The capsule was then closed with #1 Vicryl suture. A dilute betadyne lavage was then done for 3 minutes. The joint was then irrigated with normal saline solution. The fascia was closed with #1 PDS suture. Skin was closed with 2-0 Vicryl, dagmar, and a Silverlon dressing. She was then transferred to a hospital bed and taken to the post anesthesia care unit in stable condition. She tolerated the procedure well. Luciano Ye PA-C, was present for the entire procedure. He was critical for patient positioning, prepping, draping, retraction exposure, wound closure and application of sterile dressing. I attest to the content of the Intraoperative Record and any orders documented therein. Any exceptions are noted below.
[2023-04-29] MEDS ORDERED: PHENYLEPHRINE 100MCG/ML 5ML SYR ONE (12:17)
--- NOTE | 2023-04-29 12:32 | Fluoroscopy Report ---
FL hip RT 1V CLINICAL HISTORY: RT ANTERIOR HIP. Right hip arthroplasty COMPARISON STUDY: 10/18/2022 FLUOROSCOPY TIME: 15.6 seconds FLUOROSCOPY IMAGES: 1 EXPOSURE DOSE: 1.367 mGy FINDINGS: Right hip arthroplasty demonstrates satisfactory alignment. No acute fracture or dislocatio n. Expected postoperative soft tissue swelling with deep tissue air. IMPRESSION: Fluoroscopic assistance as above. ACT 112: Negative or not required by law. Electronically signed by: Cristi De Los Santos M.D. 04/29/2023 12:30 PM
--- NOTE | 2023-04-29 13:01 | XRay Report ---
AP PELVIS, CROSSTABLE LATERAL RIGHT HIP History: Right total hip arthroplasty. Degenerative arthritis. Postop. FINDINGS: The patient is status post a right total hip arthroplasty. The hardware is intact. No fract ure or dislocation. Skin dagmar are in place. Evidence for prior left total hip arthroplasty. IMPRESSION: Right total hip arthroplasty. No evidence for hardware complication ACT 112: Negative or not required by law. Electronically signed by: Nikolas Morris M.D. 04/29/2023 1:00 PM
--- NOTE | 2023-04-29 13:21 | Anesthesiology Progress Note ---
Date of Service April 29, 2023 Anesthesia Post Procedure Vital Signs Vital Signs: Temp Pulse Pulse Resp BP Pulse Ox O2 Del Method 04/29/23 13:00 59 L 12 118/59 L 99 Room Air 04/29/23 12:50 58 L 14 121/60 97 Room Air 04/29/23 12:40 57 L 12 125/58 L 96 Room Air 04/29/23 12:30 60 14 114/57 L 94 Room Air 04/29/23 12:20 59 L 15 117/61 97 Room Air 04/29/23 12:10 76 14 115/47 L 95 Room Air 04/29/23 12:00 61 17 108/54 L 95 Room Air 04/29/23 11:54 36 C L 68 16 100/51 L 97 Room Air 04/29/23 09:15 36.6 C 77 20 181/80 H 98 Room Air Pain Intensity Right Hip: Pain Intensity: 5 Transfer of Care Handoff Completed per policy Notes Mental Status: alert / awake / arousable Patient Amnestic to Procedure: Yes Nausea / Vomiting: adequately controlled Pain: adequately controlled Airway Patency, RR, SpO2: stable & adequate BP & HR: stable & adequate Hydration State: stable & adequate Neuraxial Anesthesia: was administered and sensory block is resolving Anesthetic Complications: no major complications apparent and Pt Satisfied with anesthetic care
[2023-04-29] MEDS ORDERED: ALBUTEROL 0.083% NEBU SOLN 3 ML VIAL INH PRN (14:33)
[2023-04-29] MEDS ORDERED: diphenhydrAMINE Capsule 25 MG CAP PO PRN (14:33)
[2023-04-29] MEDS ORDERED: NALOXONE HCL 0.4 MG/1 ML VIAL/CARP IV PRN (14:33)
[2023-04-29] MEDS ORDERED: oxyCODONE HCL IR 5 MG TAB (IMMEDIATE RELEASE) PO PRN (14:33)
[2023-04-29] MEDS ORDERED: ALBUTEROL HFA 8 GM INHALER INH PRN (14:33)
[2023-04-29] MEDS ORDERED: PHARMACY GLYCEMIC MGMT CONSULT PRN (14:33)
[2023-04-29] MEDS ORDERED: METOCLOPRAMIDE HCL INJ 5 MG/ML 2 ML VIAL IV PRN (14:33)
[2023-04-29] MEDS ORDERED: MAGNESIUM HYDROXIDE SUSP 30 ML UDC PO PRN (14:33)
[2023-04-29] MEDS ORDERED: bisacodyL 10 MG SUPP PR PRN (14:33)
[2023-04-29] MEDS ORDERED: GLUCOSE 10 TAB/TUBE PO PRN (15:00)
[2023-04-29] MEDS ORDERED: GLUCOSE 40% GEL 15 GM TUBE PO PRN (15:00)
[2023-04-29] MEDS ORDERED: CARBOHYDRATES FOR HYPOGLYCEMIA PO PRN (15:00)
[2023-04-29] MEDS ORDERED: GLUCAGON FOR INJ 1 MG VIAL IM PRN (15:00)
[2023-04-29] MEDS ORDERED: DEXTROSE 50% 50 ML SYRINGE IV PRN (15:00)
[2023-04-29] MEDS: SODIUM CHLORIDE 0.9% 1,000 ML IV SCH (16:21)
[2023-04-29] MEDS: KETOROLAC TROMETHAMINE 15 MG/ML VIAL IV SCH ×2 (16:22→21:00)
[2023-04-29] MEDS: ACETAMINOPHEN 500 MG TAB PO SCH ×2 (16:22→22:11)
[2023-04-29] MEDS: INSULIN ASPART PER UNIT CHARGE SC SCH ×2 (17:34→21:50)
[2023-04-29] MEDS: ceFAZolin 2000MG 2,000 MG/15 ML SYR IV SCH (17:51)
[2023-04-29] MEDS: ASPIRIN 81 MG ECTAB PO SCH (19:56)
[2023-04-29] MEDS: DOCUSATE SODIUM 100 MG CAP PO SCH (19:56)
[2023-04-29] MEDS: HYDROmorphone INJ 0.5 MG/0.5 ML SYR IV PRN (19:56)
[2023-04-29] MEDS ORDERED: SENNA 8.6 MG TAB PO SCH (21:00)
[2023-04-29] MEDS ORDERED: ROSUVASTATIN CALCIUM 10 MG TAB PO SCH (21:00)
[2023-04-29] MEDS ORDERED: LOSARTAN POTASSIUM 50 MG TAB PO SCH (21:00)
[2023-04-29] MEDS ORDERED: dilTIAZem HCL 240 MG CAPCR PO SCH (21:00)
[2023-04-29] MEDS ORDERED: FLUTICASONE FUROATE 200MCG 14 PUFFS/INHALER INH SCH (21:00)
[2023-04-30] MEDS: SODIUM CHLORIDE 0.9% 1,000 ML IV SCH (01:03)
[2023-04-30] MEDS: ceFAZolin 2000MG 2,000 MG/15 ML SYR IV SCH (02:03)
[2023-04-30] MEDS: KETOROLAC TROMETHAMINE 15 MG/ML VIAL IV SCH ×2 (02:29→08:10)
[2023-04-30] MEDS: ACETAMINOPHEN 500 MG TAB PO SCH (05:14)
[2023-04-30] MEDS: INSULIN ASPART PER UNIT CHARGE SC SCH ×2 (08:09→11:47)
[2023-04-30] MEDS: ASPIRIN 81 MG ECTAB PO SCH (08:10)
[2023-04-30] MEDS: DOCUSATE SODIUM 100 MG CAP PO SCH (08:10)
--- NOTE | 2023-04-30 08:12 | Orthopedic Progress Note ---
Date of Service April 30, 2023 Assessment & Plan (1) Status post right hip replacement: Overall she is doing very well. She is not having much pain in the right hip. She will be seen by physical therapy today for ambulation and range of motion exercises. She can be discharged home later today. She is on aspirin for DVT prophylaxis. She will follow-up with orthopedics in 2 weeks. Keisha Torres was seen and examined at bedside this morning. Overall she is doing very well. She is not having much pain in the right hip. She has been up and ambulating to the bathroom. She has no complaints.. Review of Systems All systems reviewed & are unremarkable except as noted in HPI & below. Physical Exam On physical examination of the right hip, the dressing is clean and dry. Her leg is out full extension. She has active dorsiflexion plantarflexion of her right ankle.. Results & Data Results & Data Laboratory Results . Diagnostic Findings Postoperative x-rays of the right hip show the prosthesis to be in anatomic alignment without any evidence of fracture, dyscrasia, or loosening.. PG Care Time/CCT Total # of Minutes Spent Total Time Spent with Patient: Total time spent is greater than 50% in coordination of care (as documented) at patient's floor/unit and/or counseling patient: Coding Level of Care Code 81606 Post Operative Follow-Up Diagnoses Status post right hip replacement Z96.641
--- NOTE | 2023-04-30 08:13 | Discharge Summary ---
Date of Service April 30, 2023 Principal Diagnosis Same as "Discharge Diagnosis" noted below under Discharge Instructions. Discharge Exam On physical examination of the right hip, the dressing is clean and dry. Her leg is out full extension. She has active dorsiflexion plantarflexion of her right ankle.. Discharge Data Procedures Performed Operation Date: 04/29/23 10:00 Actual Procedures p Right Anterior Total Hip Arthroplasty(Right) - Luciano Wood DO Ordered Studies 04/29/23 [place] hip RT 1V Routine Hospital Course (1) Status post right hip replacement: On April 29, 2023 Melissa arrived at [facility] and underwent a right hip replaced without complication. She had a spinal anesthetic. Postoperatively she was started on aspirin for DVT prophylaxis and transferred to the general orthopedic floors. Her hospital course was uneventful. On postop day #1, her vital signs were stable and her pain was well controlled. She was able to participate well with physical therapy doing ambulation and range of motion exercises. She was then discharged home. She will follow-up with orthopedics in 2 weeks. PG Care Time/CCT Total # of Minutes Spent Total Time Spent with Patient: Total time spent is greater than 50% in coordination of care (as documented) at patient's floor/unit and/or counseling patient: Discharge Plan Discharge Items Patient Disposition: Home - Home Health Services Reason For Visit: DJD Right Hip Discharge Diagnosis: Right hip replacement Activity: Per Instructions section Non-emergency contact: Surgeon Call non-emergency contact if: your wound has increased redness and your wound has increased drainage Follow-up/Referrals: Darnell Madsen MD [Primary Care Provider] - Diet: Regular Addtl Attending Provider Instructions: Activity and Therapy Recommendations: * If you are using [facility] then therapy will be provided at your home until they feel you have accomplished all of your goals. * If you are using [facility] then Physical Therapy will be provided until they feel you are ready to start Outpatient Physical Therapy. * If you are not using home therapy then Outpatient Physical Therapy should start about 3-5 days from your day of surgery. Therapy will last about 6-10 weeks * You were shown a series of exercises in the hospital. Do these exercises three times each day including the exercises you were shown in physical therapy. * Get up and walk several times each day.~ For the first four weeks, try not to stand or walk for more than one hour at a time. If you do stand or walk for more than one hour, you will not hurt anything, but your leg will likely swell.~~ * As you feel comfortable, you may change from the walker or crutches to a cane and~then to independent walking. Medications: * Narcotic You will likely be sent home from the hospital with a prescription for the narcotic pain medication that worked best throughout your stay. * Aspirin Most patients will be required to take Aspirin 81mg twice a day for 6 weeks after surgery. This is obtained [id number] and a prescription is not necessary. * Other medications may be prescribed for specific circumstances. If you have any questions, please call the office at . * Resume previous home medications unless otherwise instructed TEDs/Elastic Stockings: The white elastic stockings help limit swelling and prevent blood clots from forming in your legs. The more you wear them, the more they work. Wear them for six weeks. Dressing Care: Leave the Silverlon dressing in place for 7 days. After 7 days you may remove the dressing. If the incision is not draining then you may leave the dagmar open to air. If there is a little bit of drainage or if the dagmar are getting stuck on your clothing then cover the incision with a dry dressing. The dagmar will be removed at your 2 week follow-up appointment. Showering: You may shower with the Silverlon dressing in place. Do not let the shower spray hit the dressing directly. Pat the Silverlon dressing dry. If the dressing becomes wet underneath, then simply remove the dressing. Keep the incision dry until you are 7 days out from the day of surgery. After 7 days you may remove the Silverlon dressing and shower with the dagmar exposed. Let soapy water run over the dagmar and pat them dry. Do not scrub or soak the incision. Things To Watch For: * Drainage from the incision site that occurs more than one week after your surgery. * Increased redness at the incision site. * Fever above 102 degrees Fahrenheit. * Unusual chest pain or shortness of breath. * Call [facility] at with any of the above problems Follow-Up Visit: Follow-up with Dr. Wood's PA (Luciano Ye) 2-3 weeks after your day of surgery. He will remove your dagmar and answer any questions. If you have any additional questions or concerns, Dr Wood is usually in the office at the same time and will be available An appointment was probably scheduled when you signed-up for surgery in the office. If you have any questions call Office Instructions: More detailed instructions as well as Frequently Asked Questions were provided in a folder by our office when you signed-up for surgery. Please review these instructions when you get home. If you have any further questions or concerns, please feel free to call the office at [phone] Pending Studies at Discharge: No Stand-Alone Forms: My [facility] Medications and DC Order Prescriptions: New oxycodone 5 mg Tablet 5 mg PO Q4H PRN (Reason: pain) Qty: 30 0RF Continued tramadol 50 mg tablet 50 mg PO Q6H PRN (Reason: pain) Qty: 30 0RF Patient Comments: no longer using albuterol sulfate 2.5 mg /3 mL (0.083 %) solution for nebulization 2.5 mg inhalation Q4H PRN (Reason: shortness of breath or wheezing) Qty: 90 11RF diphenhydramine HCl 25 mg tablet 25 mg PO DAILY PRN (Reason: Allergy Symptoms) Qty: 180 rosuvastatin 10 mg tablet 10 mg PO HS Qty: 90 3RF albuterol sulfate [Proventil HFA] 90 mcg/actuation HFA aerosol inhaler 2 puff INHALATION Q4H PRN (Reason: Wheezing) Qty: 18 11RF Patient Comments: takes 2 puffs in the QAM and 2 puffs HS multivitamin Tablet 1 tab PO QAM bromelains 500 mg Tablet 500 mg PO QAM cetirizine [Zyrtec] 10 mg Tablet 10 mg PO QPM diltiazem HCl [Cartia XT] 240 mg Capsule,Extended Release 24hr 240 mg PO HS cholecalciferol (vitamin D3) [Vitamin D3] 1,000 unit Capsule 1,000 unit PO QAM vitamin B complex Tablet 1 tab PO QAM acetaminophen 500 mg Capsule 500 mg PO Q6H PRN (Reason: Pain) lutein-zeaxanthin 20 mg- 1,000 mcg Capsule 1 cap PO QAM zafirlukast 20 mg tablet 20 mg PO QAM Asmanex Twisthaler 220 mcg/ actuation (60) aerosol powdr breath activated 1 inh INH QPM Patient Comments: early evening olmesartan 20 mg tablet 20 mg PO HS Glucosamine 2,000 mg PO QAM docusate sodium [Stool Softener] 100 mg Capsule 100 mg PO DAILY Probiotic 3 billion cell Capsule 3,000 mmu cells PO DAILY Rx Instructions: administer with a meal aspirin [Chandrakant Low Dose Aspirin] 81 mg tablet,delayed release (DR/EC) 81 mg PO BID 42 Days Qty: 0 0RF Admission Data Admit Date/Time: 04/29/23 11:58 Attending Provider: Luciano Wood Admit Provider: Luciano Wood Primary Care Provider: Darnell Madsen
[2023-04-30] MEDS ORDERED: MULTIVITAMIN TAB PO SCH (09:00)
[2023-04-30] MEDS: HYDROmorphone INJ 0.5 MG/0.5 ML SYR IV PRN (12:48)
== END 2023-04-30 13:09 | disposition home health service (06) ==
LOC: ASU 08:32 → 3E 08:32